=== PATIENT | female | born 1940 | race Caucasian/White ===

== ENCOUNTER → 2017-10-19 | Day surgery (SDC) | payer MEDICARE ==
--- NOTE | 2017-10-15 14:50 | Diagnostic Imaging Report ---
PROCEDURE: X-RAY CHEST, TWO VIEWS COMPARISON: Chest x-ray 03/09/15. INDICATIONS: PRE OPERATIVE CHEST X-RAY FOR TOE SURGERY FINDINGS: LUNGS: Mild hyperinflation is stable. No mass or infiltrate. Pulmonary vascular markings are normal. PLEURA: No effusions or pneumothorax. HEART \T\ MEDIASTINUM: The heart is within normal size-limits. Ectasia of the descending thoracic aorta is present. BONES \T\ SOFT TISSUES: Scoliosis of the thoracolumbar spine is stable. The bones are diffusely demineralized. No focal osseous lesions. Surgical clips in the upper abdomen are stable consistent with cholecystectomy. CONCLUSION: Stable pulmonary hyperinflation suggestive of small airways disease. No acute cardiopulmonary process. Dictated by: Ivonne Miranda M.D. on 10/15/2017 at 14:52 Electronically approved by: Ivonne Miranda M.D. on 10/15/2017 at 14:52
[~2017-10-19] MED LIST: ALLOPURINOL300 MG PO; AMLODIPINE BESYL5 MG PO; ASPIR 8181 MG PO; BIOTIN800 MCG PO; BUPIVACAINE HCL 0.5% INJ 30 ML VIAL INJ ONE; CALTRATE 600 W1 EACH PO; CEFAZOLIN SOD 1 GM VIAL ONE; CENTRUM SILVER1 EAC3 PO; DEXAMETHASONE SOD PHOS INJ 4 MG/ML VIAL ONE; FENTANYL CITRATE/PF 100MCG/2 ML INJ ONE; HYDROCHLOROTHIA25 MG PO; KRILL OIL500 MG PO; LIDOCAINE HCL 2% LOCAL INJ 5 ML SDV VIAL INJ ONE; LOSARTAN POTAS100 MG PO; MAGNESIUM OXID400 MG PO; MIDAZOLAM HCL 2 MG/2 ML VIAL ONE; NEXIUM20 MG PO; ONDANSETRON HCL INJ 2 MG/ML VIAL ONE; PROPOFOL IV EMULSION 10 MG/ML 20 ML VIAL ONE; SEVOFLURANE INHAL SOLN 250 ML PEN BTL ONE; THERALITH XR T1 EACH PO; VIT D3 PO
--- OUTSIDE RECORDS SUMMARY | 2017-10-19 06:17 | XMS REPORT ---
Author Author [facility] Address Unknown Phone Unavailable Care Team Providers Care Transformer Inspector Name Role Phone Walt VINSON Unavailable Unavailable Problems This patient has no known problems. Allergies, Adverse Reactions, Alerts This patient has no known allergies or adverse reactions. Medications This patient has no known medications. Results Test Description Test Time Test Comments Text Results Atomic Results Result Comments CHEST 2 VIEWS [place] [address] Patient Name: GILMER POMPA MR #: [id number] : 1940 Age/Sex: 77/F Req # : [id number] Adm Physician: Ordered by: BALAJI BARBOZA MD Report #: [id number] Location: OR Room/Bed: Procedure: [id number] DX/ CHEST 2 VIEWS Exam Date: Exam Time: REPORT STATUS: Signed PROCEDURE: X-RAY CHEST, TWO VIEWS COMPARISON: Chest x-ray . INDICATIONS: PRE OPERATIVE CHEST X-RAY FOR TOE SURGERY FINDINGS: LUNGS: Mild hyperinflation is stable. No mass or infiltrate. Pulmonary vascular markings are normal. PLEURA: No effusions or pneumothorax. HEART T MEDIASTINUM: The heart is within normal size-limits. Ectasia of the descending thoracic aorta is present. BONES T SOFT TISSUES: Scoliosis of the thoracolumbar spine is stable. The bones are diffusely demineralized. No focal osseous lesions. Surgical clips in the upper abdomen are stable consistent with cholecystectomy. CONCLUSION: Stable pulmonary hyperinflation suggestive of small airways disease. No acute cardiopulmonary process. Dictated by: Vel Miranda M.D. on at 14:52 Electronically approved by: Vel Miranda M.D. on at 14:52 Dictated By: VEL MIRANDA MD 1452 Transcribed By : MIKI on 10/15/17 1452 COPY TO: BALAJI BARBOZA MD
--- NOTE | 2017-10-19 10:24 | Operative Report ---
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 PLANNED PROCEDURE: Right excision of 2nd and 3rd interspace neuromas. SURGEON: Dr. Nichole JOHNSON. MEDICATION RECONCILIATION TECHNICIAN: Candelaria Thomas DPM ANESTHESIA: General with a postoperative block consisting of 10 mL of 0.5% Marcaine plain mixed with 1 mL of dexamethasone phosphate. HEMOSTASIS: Pneumatic thigh tourniquet set at 350 mmHg for a total time of approximately 20 minutes. MATERIALS: 3-0 Vicryl, 4-0 Prolene. ESTIMATED BLOOD LOSS: Less than 10 mL. PATHOLOGY: None. DETAILS OF PROCEDURE: Patient was seen in the preoperative waiting room where the correct procedure and site was identified. The patient was brought to the operating room and placed on the operating table in the supine position. General anesthesia was initiated at this time. A well-padded pneumatic tourniquet was placed about the patient's right thigh. The right foot, ankle and leg was then scrubbed, prepped and draped in the usual aseptic manner. The right foot, ankle and leg was exsanguinated with an Esmarch bandage, and the pneumatic thigh tourniquet was inflated to 350 mmHg for a total time of approximately 20 minutes. Attention was directed the dorsal aspect of the patient's right foot where a 4 cm linear incision was made directly in the 3rd interspace. The incision was carried through the subcutaneous tissues them from deeper underlying structures. All vital neurovascular structures were identified and retracted medially and lateral, all bleeders were cauterized or ligated as deemed necessary. Utilizing a hemostat for blunt dissection, the deep transverse metatarsal ligament was isolated and incised utilizing tenotomy scissors. At this point, the intermetatarsal nerve with proper digital branches was noted to be inflamed and tortuous. It was dissected distally, and the proper digital branches were cut, dissected proximally, pulled distally, cut, and allowed to retract into the proximal aspect of the foot. The wound was then flushed with copious amounts of sterile saline. Deep tissue was reapproximated with 3-0 Vicryl, and the skin was closed using a running locking stitch with 4-0 Prolene. The same exact procedure was performed to the 2nd interspace of the patient's right foot. No additions, subtractions or modifications were performed. The same excellent result was achieved. The incision site was dressed with Adaptic, 4 x 4' s, Kerlix, Brednon wrap, and a postop shoe. The patient tolerated the procedure and anesthesia well. Patient was transferred to the postoperative recovery unit with vital signs stable and vascular status intact. The patient was monitored there for a short period time before being sent home with the following written instructions: 1. Keep the dressing clean, dry and intact. 2. The patient is to remain partial weightbearing in a postop shoe and to avoid excessive ambulation until being seen in the office. 3. The patient was given the office number and instructed to contact us if any problems should arise. DICTATED BY CANDELARIA THOMAS DPM Job#: [id number] KEISHA
== END | disposition home or self-care (01) ==
LOC: OR 06:14
PROVIDERS: ATTEND Podiatrist Foot & Ankle Surgery
DX: G57.61 Lesion of plantar nerve, right lower limb (principal); I10 Essential (primary) hypertension; K21.9 Gastro-esophageal reflux disease without esophagitis; M10.9 Gout, unspecified; Z01.810 Encounter for preprocedural cardiovascular examination; Z01.818 Encounter for other preprocedural examination; Z79.82 Long term (current) use of aspirin
CPT/HCPCS: 28080 ×2; 71046; 93005; J0690; J1100; J2001; J2250; J2405

== ENCOUNTER 2018-04-23 08:43 | Outpatient (RCR) | payer MEDICARE ==
[~2018-04-23 08:43] MED LIST changes: -BUPIVACAINE HCL 0.5% INJ 30 ML VIAL INJ ONE; -CEFAZOLIN SOD 1 GM VIAL ONE; -DEXAMETHASONE SOD PHOS INJ 4 MG/ML VIAL ONE; -FENTANYL CITRATE/PF 100MCG/2 ML INJ ONE; -LIDOCAINE HCL 2% LOCAL INJ 5 ML SDV VIAL INJ ONE; +LIDOCAINE/PRILOCAINE 2.5-2.5% KIT ONE; +LOSARTAN-HCTZ1 EACH PO; -MIDAZOLAM HCL 2 MG/2 ML VIAL ONE; +MINERAL OIL/PETROLAT/GLYCERI 6OZ BTL ONE; -ONDANSETRON HCL INJ 2 MG/ML VIAL ONE; -PROPOFOL IV EMULSION 10 MG/ML 20 ML VIAL ONE; -SEVOFLURANE INHAL SOLN 250 ML PEN BTL ONE
[2018-04-23] MEDS ORDERED: MINERAL OIL/PETROLAT/GLYCERI 6OZ BTL ONE (14:15)
[2018-04-23] MEDS ORDERED: LIDOCAINE/PRILOCAINE 2.5-2.5% KIT ONE (14:15)
== END 2018-05-03 ==
LOC: WCC 08:43
PROVIDERS: ATTEND Family Medicine Adult Medicine
DX: T81.89XA Other complications of procedures, not elsewhere classified, initial encounter (principal); M96.89 Other intraoperative and postprocedural complications and disorders of the musculoskeletal system; S81.801A Unspecified open wound, right lower leg, initial encounter; I87.2 Venous insufficiency (chronic) (peripheral); R60.0 Localized edema; M10.9 Gout, unspecified; I10 Essential (primary) hypertension; B95.1 Streptococcus, group B, as the cause of diseases classified elsewhere

== ENCOUNTER → 2021-05-09 | Outpatient (CLI) | payer MEDICARE ==
[~2021-05-09] MED LIST changes: -LIDOCAINE/PRILOCAINE 2.5-2.5% KIT ONE; -MINERAL OIL/PETROLAT/GLYCERI 6OZ BTL ONE
== END ==
LOC: DX 08:49
PROVIDERS: ATTEND Internal Medicine Gastroenterology
DX: K57.30 Diverticulosis of large intestine without perforation or abscess without bleeding (principal); Z86.010 Personal history of colon polyps
CPT/HCPCS: 74280